=== PATIENT | female | born 1995 | race Caucasian/White ===

== ENCOUNTER 2017-01-31 02:00 | Observation (INO) | payer MEDICAID ==
[~2017-01-31] VITALS: Ht 152.4 cm; Wt 64.0 kg
[2017-01-31] MEDS ORDERED: PREN-88 PO (02:22)
[2017-01-31] MEDS ORDERED: ACETAMINOPHEN 500MG TABLET PO ONE (02:30)
== END 2017-01-31 05:00 | disposition home or self-care (01) ==
LOC: L&D 02:00
PROVIDERS: ADMIT Obstetrics & Gynecology; ATTEND Obstetrics & Gynecology
DX: O26.893 Other specified pregnancy related conditions, third trimester (principal); R10.9 Unspecified abdominal pain; Y04.0XXA Assault by unarmed brawl or fight, initial encounter; Y93.89 Activity, other specified; Y92.89 Other specified places as the place of occurrence of the external cause; Y99.8 Other external cause status; Z3A.28 28 weeks gestation of pregnancy
CPT/HCPCS: 76805; 76818; G0378